=== PATIENT | female | born 1975 | race Hispanic/Latino ===

== ENCOUNTER 2021-11-20 16:02 | Emergency (ER) | payer BC, OTHER ==
--- OUTSIDE RECORDS SUMMARY | 2021-11-20 16:04 | XMS REPORT | Continuity of Care Document ---
:1975 Author Organization [facility] t Address [address] [place] [address] [address]. [address]. [address] [place] [address] Care Team Providers Name Role Phone EMMA Attending Clinician Unavailable Problems This patient has no known problems. Allergies, Adverse Reactions, Alerts This patient has no known allergies or adverse reactions. Medications This patient has no known medications. Procedures This patient has no known procedures. Encounters Start End Encounter Admission Attending Care Care Encounter Source Date/Time Date/Time Type Type Clinicians Facility Department ID 2021-02-22 2021-02-22 Outpatient [facility] [id number] [place] 00:00:00 00:00:00 CHIOMA Loera[facility] 2021-02-22 2021-02-22 Outpatient [facility] [id number] [place] 00:00:00 00:00:00 CHIOMA Madrigal [facility] Results This patient has no known results.
[2021-11-20 17:28] LABS: SARS-COV-2 RT PCR POSITIVE (NEGATIVE)
--- NOTE | 2021-11-20 18:12 | EDPHYS ---
Physician Documentation [facility] Name: Regina Sheffield Age: 46 yrs Sex: Female : 1975 Arrival Date: 11/20/2021 Time: 16:04 Bed 17 Private MD: ED Physician Rey Marin HPI: 11/20 17:15 This 46 yrs old Female presents to ER via Ambulatory with complaints of Cough, ma2 Sinus Congestion, Fatigue. 17:15 Onset: The symptoms/episode began/occurred gradually, 1 day(s) ago. Severity of ma2 symptoms: At their worst the symptoms were mild, in the emergency department the symptoms are unchanged. Associated signs and symptoms: Pertinent negatives: ear ache, nausea, sore throat. The patient has not experienced similar symptoms in the past. 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 Pneumococcal vaccine is not up to date, Flu vaccine is not up to date. - Social history:: Smoking status: Patient denies any tobacco usage or history of. - Family history:: not pertinent. ROS: 17:15 Constitutional: Negative for fever, chills, and weight loss. ma2 17:15 All other systems are negative. Exam: 17:15 Constitutional: This is a well developed, well nourished patient who is awake, alert, ma2 and in no acute distress. Head/Face: Normocephalic, atraumatic. Eyes: Pupils equal round and reactive to light, extra-ocular motions intact. Lids and lashes normal. Conjunctiva and sclera are non-icteric and not injected. Cornea within normal limits. Periorbital areas with no swelling, redness, or edema. ENT: Nares patent. No nasal discharge, no septal abnormalities noted. Tympanic membranes are normal and external auditory canals are clear. Oropharynx with no redness, swelling, or masses, exudates, or evidence of obstruction, uvula midline. Mucous membranes moist. Neck: Trachea midline, no thyromegaly or masses palpated, and no cervical lymphadenopathy. Supple, full range of motion without nuchal rigidity, or vertebral point tenderness. No Meningismus. Chest/axilla: Normal chest wall appearance and motion. Nontender with no deformity. No lesions are appreciated. Cardiovascular: Regular rate and rhythm with a normal S1 and S2. No gallops, murmurs, or rubs. Normal PMI, no JVD. No pulse deficits. Respiratory: Lungs have equal breath sounds bilaterally, clear to auscultation and percussion. No rales, rhonchi or wheezes noted. No increased work of breathing, no retractions or nasal flaring. Abdomen/GI: Soft, non-tender, with normal bowel sounds. No distension or tympany. No guarding or rebound. No evidence of tenderness throughout. Skin: Warm, dry with normal turgor. Normal color with no rashes, no lesions, and no evidence of cellulitis. MS/ Extremity: Pulses equal, no cyanosis. Neurovascular intact. Full, normal range of motion. Neuro: Awake and alert, GCS 15, oriented to person, place, time, and situation. Cranial nerves II-XII grossly intact. Motor strength 5/5 in all extremities. Sensory grossly intact. Cerebellar exam normal. Normal gait. Vital Signs: 16:20 BP 137 / 88; Pulse 59; Resp 16 S; Temp 97.6(TE); Pulse Ox 100% on R/A; Weight 95.25 kg j9 (R); Height 5 ft. 2 in. (157.48 cm) (R); 17:33 BP 130 / 92; Pulse 61; Resp 18; Pulse Ox 97% on R/A; rodriguez 18:19 BP 121 / 77; Pulse 69; Resp 18; Pulse Ox 98% on R/A; Pain 0/10; ab2 16:20 Body Mass Index 38.41 (95.25 kg, 157.48 cm) jg9 MDM: 16:25 Patient medically screened. ma2 17:15 Differential Diagnosis: Influenza Upper Respiratory Infection Sinusitis Pharyngitis. ma2 Data reviewed: vital signs, nurses notes, EMS record. Counseling: I had a detailed discussion with the patient and/or guardian regarding: the historical points, exam findings, and any diagnostic results supporting the discharge/admit diagnosis, the presence of at least one elevated blood pressure reading (>120/80) during this emergency department visit, the need for outpatient follow up. Counseling: I had a detailed discussion with the patient and/or guardian regarding: lab results, the need for outpatient follow up. Response to treatment: the patient's symptoms have markedly improved after treatment. 11/20 16:29 Order name: COVID-19/FLU A+B (Document "Date of Onset" if Symptomatic) rodriguez 11/20 16:29 Order name: COVID-19/FLU A+B; Complete Time: 18:03 EDMS Administered Medications: No medications were administered Disposition Summary: 11/20/21 18:12 Discharge Ordered Location: Home ma2 Condition: Stable ma2 Diagnosis - Coronavirus infection, unspecified ma2 Followup: ma2 - With: Private Physician - When: Tomorrow - Reason: Continuance of care Discharge Instructions: - Discharge Summary Sheet ma2 - COVID-19 ma2 - COVID-19 Frequently Asked Questions wy2 - COVID-19: Quarantine vs. Isolation - [facility] Forms: - Medication Reconciliation Form ma2 - Thank You Letter ma2 - Antibiotic Education ma2 - Prescription Opioid Use ma2 Prescriptions: - Tessalon Perles 100 mg Oral Capsule - take 1 capsule by ORAL route every 8 hours As needed; 15 capsule; Refills: 0, ma2 Product Selection Permitted - Zithromax Z-Daquan 250 mg Oral Tablet - take 1 tablet by ORAL route as directed for 5 days Day 1 - take two (2) tablets ma2 one time. 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
--- NOTE | 2021-11-20 18:12 | ER ---
Nurse's Notes [facility] Name: Regina Sheffield Age: 46 yrs Sex: Female : 1975 Arrival Date: 11/20/2021 Time: 16:04 Bed 17 Private MD: Diagnosis: Coronavirus infection, unspecified Presentation: 11/20 16:20 Chief complaint: Patient states: "I have the same symptoms as my who just came jg9 in to the emergency room today". Symptoms include congestion, cough, chills and sinus pressure ongoing since 11/17/2021. Patient is unvaccinated, may have been exposed. Coronavirus screen: Vaccine status: Patient reports being unvaccinated. Ebola Screen: Patient negative for fever greater than or equal to 101.5 degrees Fahrenheit, and additional compatible Ebola Virus Disease symptoms Patient denies exposure to infectious person. Patient denies travel to an Ebola-affected area in the 21 days before illness onset. Initial Sepsis Screen: Does the patient meet any 2 criteria? No. Patient's initial sepsis screen is negative. Does the patient have a suspected source of infection? No. Patient's initial sepsis screen is negative. Risk Assessment: Do you want to hurt yourself or someone else? Patient reports no desire to harm self or others. Onset of symptoms is unknown. 16:20 Method Of Arrival: Ambulatory [facility] [place] 16:20 Acuity: SHAWN 4 j9 Triage Assessment: 16:22 General: Appears in no apparent distress. Behavior is calm, cooperative. Pain: 9 Complains of pain in nose-reports sinus pressure Pain. 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 Pneumococcal vaccine is not up to date, Flu vaccine is not up to date. - Social history:: Smoking status: Patient denies any tobacco usage or history of. - Family history:: not pertinent. Screenin:23 Abuse screen: Denies threats or abuse. Denies injuries from another. Nutritional j9 screening: No deficits noted. Tuberculosis screening: No symptoms or risk factors identified. Fall Risk None identified. Assessment: 16:26 General: Appears in no apparent distress. Behavior is calm, cooperative. rodriguez 16:37 General: Appears comfortable, Behavior is calm, cooperative, appropriate for age. Pain: ab2 Denies pain. Neuro: No deficits noted. 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 Cardiovascular: No deficits noted. Denies chest pain, shortness of breath, Heart tones S1 S2 present Patient's skin is warm and dry. Respiratory: No deficits noted. Reports Airway is patent. GI: No deficits noted. No signs and/or symptoms were reported involving the gastrointestinal system. Abdomen is flat, non-distended, Bowel sounds present X 4 quads. : No deficits noted. No signs and/or symptoms were reported regarding the genitourinary system. EENT: Reports nasal congestion since x3 days nasal discharge pain. Derm: No deficits noted. No signs and/or symptoms reported regarding the dermatologic system. Musculoskeletal: No deficits noted. No signs and/or symptoms reported regarding the musculoskeletal system. Vital Signs: 16:20 BP 137 / 88; Pulse 59; Resp 16 S; Temp 97.6(TE); Pulse Ox 100% on R/A; Weight 95.25 kg jg9 (R); Height 5 ft. 2 in. (157.48 cm) (R); 17:33 BP 130 / 92; Pulse 61; Resp 18; Pulse Ox 97% on R/A; rodriguez 18:19 BP 121 / 77; Pulse 69; Resp 18; Pulse Ox 98% on R/A; Pain 0/10; ab2 16:20 Body Mass Index 38.41 (95.25 kg, 157.48 cm) jg9 ED Course: 16:04 Patient arrived in ED. as 16:22 Triage completed. jg9 16:23 Patient has correct armband on for positive identification. jg9 16:24 Rey Marin MD is Attending Physician. ma2 16:37 Kolby Soto is Primary Nurse. ab2 16:39 Door closed. Noise minimized. Lights dimmed. ab2 16:39 No provider procedures requiring assistance completed. ab2 16:42 COVID-19/FLU A+B (Document "Date of Onset" if Symptomatic) Sent. ab2 16:43 COVID-19/FLU A+B Sent. ab2 17:34 Arm band placed on. rodriguez 18:20 Patient did not have IV access during this emergency room visit. ab2 Administered Medications: No medications were administered Outcome: 18:12 Discharge ordered by . ma2 18:20 Discharged to home ambulatory. ab2 18:20 Condition: good 18:20 Discharge instructions given to patient, significant other, Instructed on discharge instructions, follow up and referral plans. the need for admit, Prescriptions given X 3. 18:20 Patient left the ED. ab2 Signatures: Ratna Amanda Mohammad, MD MD ma2 Lilia Galvan RN RN jg9 Rayna Constantino RN RN rodriguez Kolby Soto ab2
[2021-11-20 18:51] VITALS: TEMP 97.6
[2021-11-20 18:54] VITALS: BP 121/77; O2SAT 98
== END 2021-11-20 18:20 | disposition home or self-care (01) ==
LOC: ER 16:02
DX: U07.1 COVID-19 (principal); I10 Essential (primary) hypertension; Z88.0 Allergy status to penicillin
CPT/HCPCS: 0240U; 99283